=== PATIENT | male | born 1980 | race Caucasian/White ===

== ENCOUNTER 2018-05-28 05:15 | Emergency (ER) | payer SELFPAY ==
[2018-05-28] MEDS ORDERED: Ibuprofen 800 MG TAB ONE (06:47)
--- NOTE | 2018-05-28 08:46 | RAD ---
3 VIEWS RIGHT WRIST: Date: 05/28/18 COMPARISON: None. HISTORY: Tripped and fell, right wrist pain and swelling. FINDINGS: Three views of the right wrist show lucency in the distal radius at the radiocarpal joint. This does not appear to extend completely through the radius. This is of uncertain significance and could repre sent a fracture. This could also be a congenital abnormality. Mild soft tissue swelling is seen. IMPRESSION: Lucency in the distal radius could potentially represent a fracture. POS: [facility]
--- NOTE | 2018-05-28 08:49 | RAD ---
3 VIEWS RIGHT HAND: Date: 05/28/18 COMPARISON: None. HISTORY: Tripped and fell, right hand pain and swelling. FINDINGS: Three views of the right hand show lucency in the distal radius at the radiocarpal joint. This does n ot completely extend through the radius and may or may not represent a fracture. Surrounding soft tis consuelo swelling is seen. IMPRESSION: Possible interarticular distal radius fracture. POS: [facility]
== END 2018-05-28 06:50 | disposition home or self-care (01) ==
LOC: ERS 05:15
DX: S52.501A Unspecified fracture of the lower end of right radius, initial encounter for closed fracture (principal); W01.0XXA Fall on same level from slipping, tripping and stumbling without subsequent striking against object, initial encounter
CPT/HCPCS: 29125

== ENCOUNTER 2018-06-21 11:50 | Observation (INO) | payer SELFPAY ==
[2018-06-21 13:21] LABS: #Eosinphils 0.1 thou/uL (0.0-0.7); #Lymphocytes 2.1 thou/uL (1.20-3.40); #Monocytes 0.9 thou/uL (0.11-0.59); #Neutrophils 6.2 thou/uL (1.40-6.50); %Basophils 0.4 % (0.0-1.0); %Eosinophils 0.8 % (0.0-10.0); %Lymphocytes 22.7 % (21.0-51.0); %Monocytes 9.5 % (0.0-10.0); %Neutrophils 66.5 % (42.0-75.0); Hemoglobin 16.8 g/dL (14.0-18.0); Mean Corpuscular Hemoglobin 30.6 pg (27.0-31.0); Mean Corpuscular Volume 87.4 fL (78.0-98.0); Mean Platelet Volume 7.1 fL (7.4-10.4); Platelet Count 391 thou/uL (130-400); RBC Distribution Width 12.2 % (11.5-14.5); Red Blood Cell (RBC) Count 5.48 mill/uL (4.70-6.10); White Blood Cell (WBC) Count 9.3 thou/uL (4.8-10.8)
[2018-06-21 13:48] LABS: ALT (SGPT) 18 U/L (8-55); AST (SGOT) 19 U/L (5-34); Albumin 4.5 g/dL (3.5-5.0); Alkaline Phosphatase 62 U/L (40-150); Anion Gap 13 mmol/L (10-20); BUN (Urea Nitrogen) 10 mg/dL (8.9-20.6); Bilirubin, Total 0.5 mg/dL (0.2-1.2); Calc. Creatinine Clearance 0 mL/min (70-130); Calcium 9.9 mg/dL (7.8-10.44); Carbon Dioxide 24 mmol/L (22-29); Chloride 103 mmol/L (98-107); Estimated GFR-MDRD Greater than 90; Globulin 3.3 g/dL (2.4-3.5); Glucose 105 mg/dL (70-105); Potassium 4.1 mmol/L (3.5-5.1); Protein, Total 7.8 g/dL (6.0-8.3); Sodium 136 mmol/L (136-145)
[2018-06-21] MEDS ORDERED: Ketorolac Tromethamine 30 MG/ML VIAL ONE (14:05)
--- NOTE | 2018-06-21 14:47 | CT ---
POSTCONTRAST SOFT TISSUE NECK CT: HISTORY: Right jaw swelling and pain since last night. Sore throat. Congestion. Lymphadenopathy, x a few we eks. Evaluate for soft 6tissue abscess. COMPARISON: None. TECHNIQUE: Postcontrast soft tissue neck CT is performed in the axial plane. Sagittal and coronal reformatted i mages are submitted for interpretation. FINDINGS: Visualized brain parenchyma is unremarkable. Bilateral ocular lenses are appropriately located. Bot h globes are intact. Visualized orbits are unremarkable. Adequate aeration of the sinuses and mastoid air cells. Minimal mucosal disease of the left maxillary sinus. Aerodigestive tract is patent. No mucosal abnormality. Limited evaluation of the oral cavity due to dental amalgam artifact. Midline fatty raphae of the tongue is preserved. Epiglottis has a normal caliber. Preepiglottic fat is preserved. There is a subtle periapical lucency involving the 2nd left maxilla premolar tooth. No associated ad jacent inflammatory changes in the soft tissues. There is no prevertebral soft tissue swelling. There is symmetric attenuation of the submandibular glands and sternocleidomastoid muscles. Unremark able thyroid gland. There is asymmetric mild heterogeneity involving the right parotid gland as well as stranding of the subcutaneous fat and edema of the dermis overlying the right parotid gland, extending along the right mandible. There is no evidence of a soft tissue abscess. Erythema/induration of the left tissues m ay represent focal facial cellulitis. There does appear to be enlarged right intraparotid lymph node measuring 0.9 x 0.9 cm. There appears to be a small possibly necrotic lymph node along the superfic ial lobe of the right carotid gland measuring 0.6 x 0.4 cm. No evidence of a right parotid duct calc ification. There are mildly enlarged right level II lymph nodes measuring 1.2 x 0.7 cm. Additional shotty upper normal right soft tissue neck lymph nodes are also noted. Upper mediastinum and lung apices are unremarkable. IMPRESSION: Inflammatory changes which appear to be centered about the right parotid gland. Right parotiditis is suspected. There is no evidence of an associated obstructing right parotid duct calculus. There a re inflammatory changes compatible with overlying facial cellulitis. No evidence of abscess. POS: [facility]
[2018-06-21] MEDS ORDERED: Morphine 4 MG/ML VIAL ONE (15:04)
[2018-06-21] MEDS ORDERED: Clindamycin/D5W 900 mg/50 ml Premix Bag ONE (15:04)
[2018-06-21] MEDS ORDERED: Ibuprofen 200 MG TAB PO PRN (16:52)
[2018-06-21] MEDS ORDERED: Acetaminophen 325 MG TAB PO PRN (16:52)
[2018-06-21] MEDS: Sodium Chloride 0.9% 1,000 ML IV SCH ×2 (16:56→21:28)
[2018-06-21] MEDS ORDERED: Iopamidol 370 76% 100 ML VIAL ONE (17:02)
[2018-06-21 17:18] VITALS: BMI 28.1
[2018-06-21] MEDS: HYDROcodone/Acetaminophen 5/325 mg Tablet PO PRN ×2 (18:44→23:54)
[2018-06-21 19:47] LABS: Lactic Acid 2.6 mmol/L (0.5-2.2)
[2018-06-21] MEDS: Clindamycin/D5W 900 MG in Premix Bag 1 BAG IVPB SCH (21:28)
[2018-06-21] MEDS ORDERED: Clindamycin/D5W 900 MG in Premix Bag 1 BAG IVPB SCH (22:00)
--- NOTE | 2018-06-21 22:01 | HP ---
PRIMARY CARE PHYSICIAN: The patient does not have a primary care physician. CHIEF COMPLAINT: Swelling in the right side of the face. HISTORY OF PRESENT ILLNESS: Mr. Lauren is a pleasant 38-year-old gentleman who has history of DVT and PE in the past. He says that about four weeks ago, he noticed he was having a sore throat and cold-like symptoms and says that "his glands were swollen." He says that over time it got progressively worse to the point where last night he had severe swelling. He says it was puffed way out. He denies having any trouble swallowing, no dysphagia. But due to the swelling, he came to the emergency room for evaluation. He had a CT scan of the neck done which showed some evidence for parotitis, but no evidence of any abscess. No airway compromise. He is being placed in observation for further treatment. The patient denies any fevers or chills. No nausea, no vomiting, and no other symptoms. REVIEW OF SYSTEMS: All systems were reviewed and are negative except for that mentioned in the history of present illness. PAST MEDICAL HISTORY: Significant for DVT and PE, history of torn meniscus, and he has a history of C6-C7 fracture as well as a right wrist fracture. PAST SURGICAL HISTORY: He has had spinal injections. ALLERGIES: NO KNOWN DRUG ALLERGIES. SOCIAL HISTORY: He is single. He currently works in housekeeping. He smokes about a few cigarettes a day. Occasionally drinks. His surrogate decision maker is his mother, Lulu Shafer. He is a full code. FAMILY HISTORY: Significant for asthma in his sister, and father's side has a history of cancer. MEDICATIONS: He is currently not on any medications. PHYSICAL EXAMINATION: GENERAL: He is alert and oriented. He appears to be in no acute distress. VITAL SIGNS: Stable with a blood pressure of 142/93, heart rate 94, respiratory rate of 16, temperature is 98.2. HEENT: Pupils are equal, round, and reactive. Extraocular muscles are intact. His sclerae are anicteric. Throat, no erythema, no exudates. His tympanic membranes are clear. There is no fluid behind the drum. He does have some swelling in the right parotid gland. There is no fluctuance. He has extremely poor dentition, with broken teeth in both upper and lower molars. He did have some shotty submandibular adenopathy, but again no fluctuance. No crepitus. No bruits. LUNGS: Clear to auscultation. There is no wheezing, no rales, no rhonchi. CARDIOVASCULAR: He has normal S1 and S2. I did not appreciate any S3 or S4. No murmurs, clicks, or rubs. ABDOMEN: Soft. It is nontender and nondistended. Positive for bowel sounds. There is no rebound or guarding. EXTREMITIES: There is no edema. No joint effusions. NEUROLOGIC: Grossly nonfocal. SKIN AND INTEGUMENT: No skin changes. No rash. LABORATORY DATA: White blood cell count 9.3, hemoglobin 16.8, hematocrit is 47.9, platelet count is 391. Sodium 136, potassium 4.1, chloride is 103, CO2 is 24, BUN of 10, creatinine 0.91, glucose is 105. ASSESSMENT: This is a pleasant 38-year-old gentleman who presents with right parotid swelling. CT showed evidence of a parotitis. In my clinical opinion, it is a moderate disease with no abscess. Therefore, he can be placed in observation. We will place him on IV clindamycin as he has significantly poor dentition and likely oral source. Monitor him overnight. If it is significantly better, then likely he can be discharged home on oral antibiotics with close outpatient followup. Job ID: [id number] [facility]
[2018-06-22] MEDS: Clindamycin/D5W 900 MG in Premix Bag 1 BAG IVPB SCH ×2 (05:30→14:48)
[2018-06-22] MEDS: HYDROcodone/Acetaminophen 5/325 mg Tablet PO PRN ×2 (06:22→14:45)
[2018-06-22] MEDS ORDERED: Enoxaparin Sodium 40 MG/0.4 ML SYRINGE SC SCH (09:00)
[2018-06-22 12:42] VITALS: BP 124/77; TEMP 98.5
[2018-06-22 13:02] LABS: #Eosinphils 0.1 thou/uL (0.0-0.7); #Lymphocytes 1.9 thou/uL (1.20-3.40); #Monocytes 0.7 thou/uL (0.11-0.59); #Neutrophils 3.3 thou/uL (1.40-6.50); %Basophils 0.6 % (0.0-1.0); %Eosinophils 1.9 % (0.0-10.0); %Lymphocytes 31.6 % (21.0-51.0); %Monocytes 11.9 % (0.0-10.0); Hemoglobin 14.7 g/dL (14.0-18.0); Mean Corpuscular HGB CONC 34.8 g/dL (32.0-36.0); Mean Corpuscular Hemoglobin 30.9 pg (27.0-31.0); Mean Corpuscular Volume 88.7 fL (78.0-98.0); Mean Platelet Volume 6.9 fL (7.4-10.4); Platelet Count 306 thou/uL (130-400); RBC Distribution Width 12.1 % (11.5-14.5); Red Blood Cell (RBC) Count 4.76 mill/uL (4.70-6.10)
[2018-06-22 13:16] LABS: Lactic Acid 0.9 mmol/L (0.5-2.2)
--- NOTE | 2018-06-22 14:02 | PDOC.PN ---
- Subjective Encounter Start Date: 06/22/18 Encounter Start Time: 14:00 Mr. Lauren was seen today in follow-up. He is clinically stable. No new complaints. - Objective Resuscitation Status - Order Detail: 06/21/18 15:31 Resuscitation Status Routine Resuscitation Status: FULL: Full Resuscitation MAR Reviewed: Yes Vital Signs & Weight: Vital Signs (12 hours) Temp Pulse Resp BP BP Pulse Ox 06/22/18 11:55 98.5 F 67 12 124/77 98 06/22/18 07:15 97.6 F 63 16 121/85 95 06/22/18 03:38 97.6 F 60 16 97/62 98 Weight Weight 185 lb I&O: 06/21/18 06/22/18 06/23/18 06:59 06:59 06:59 Intake Total 2960 730 Balance 2960 730 Result Diagrams: 06/22/18 12:52 06/21/18 13:10 Phys Exam - Physical Examination HEENT: PERRLA area of the right parotid is less swollen, a bit more firm Respiratory: no wheezing, no rales, no rhonchi, clear to auscultation bilateral Cardiovascular: RRR, no significant murmur, no rub Dx/Plan (1) Parotitis Code(s): K11.20 - SIALOADENITIS, UNSPECIFIED Status: Acute - Plan * Paroditis- improving with Cleocin * stable for discharge home, and close outpatient follow-up.
--- NOTE | 2018-06-23 02:30 | DIS ---
DATE OF ADMISSION: 06/21/2018 DATE OF DISCHARGE: 06/22/2018 PRIMARY CARE PHYSICIAN: The patient does not have a primary care physician. DISCHARGE DISPOSITION: Home. PRIMARY DISCHARGE DIAGNOSIS: Parotitis. DISCHARGE MEDICATIONS: Cleocin 300 mg three times a day. PROCEDURES DONE: During admission, the patient had a CT scan of the soft tissue and neck in which there were some inflammatory changes centered around the right parotid gland. Right parotiditis was suspected. There was no evidence of any extracting parotid duct stone and there was no evidence of any abscess. CODE STATUS: Full code. ALLERGIES: NO KNOWN DRUG ALLERGIES. HOSPITAL COURSE: Mr. Lauren is a pleasant 38-year-old gentleman who presented to the emergency room complaining of swelling on the right side of his face, which had happened several weeks prior to admission, but worse in the last couple of days. He was found to have findings consistent with a parotiditis. On his physical exam, it was noted that he had very poor dentition with multiple missing or broken teeth and with the inflammation extending into the mandible or mandibular area, it is suspected that this could be an oral source and it was a unilateral parotitis. The patient was placed in observation, on IV antibiotics. The following day, the swelling was improved. There was no dysphagia or compromise to the airway. No fever, no elevated white count, and therefore he was discharged home and to have close outpatient followup. He is uninsured, but I did give him suggestions that he could follow up at low-cost such as a [facility] or the [facility]. Job ID: [id number]
== END 2018-06-22 17:02 | disposition home or self-care (01) ==
LOC: ERS 11:50 → SURG B 14:55
PROVIDERS: ADMIT Internal Medicine; ATTEND Internal Medicine
DX: K11.20 Sialoadenitis, unspecified (principal); F17.210 Nicotine dependence, cigarettes, uncomplicated; Z86.718 Personal history of other venous thrombosis and embolism; Z86.711 Personal history of pulmonary embolism; Z79.2 Long term (current) use of antibiotics; Z98.890 Other specified postprocedural states
CPT/HCPCS: 36410; 36415; 70491; 80053; 83605; 85025; 87040; 87081; 87430; 96361; 96365; 96366; 96372; 96375; G0378; J1650; J1885; J2270; J3490

== ENCOUNTER 2020-11-05 14:41 | Emergency (ER) | payer BC, SELFPAY | END 2020-11-05 15:27 | disposition home or self-care (01) | LOC: ERS 14:41 | DX: K92.9 Disease of digestive system, unspecified (principal); Z87.891 Personal history of nicotine dependence | CPT/HCPCS: 99281 ==

== ENCOUNTER 2021-03-31 23:30 | Emergency (ER) | payer BC | END 2021-03-31 23:53 | disposition left against medical advice (07) | LOC: ERS 23:30 | DX: F22 Delusional disorders (principal); Z87.891 Personal history of nicotine dependence ==